=== PATIENT | female | born 1955 | race Asian ===

== ENCOUNTER 2018-08-16 03:27 | Emergency (ER) | payer OTHER ==
[2018-08-16] MEDS: IBUPROFEN 600 MG TAB PO (03:57)
== END 2018-08-16 04:13 | disposition home or self-care (01) ==
LOC: FTE 03:27
DX: S40.012A Contusion of left shoulder, initial encounter (principal); J45.909 Unspecified asthma, uncomplicated; I10 Essential (primary) hypertension; W01.0XXA Fall on same level from slipping, tripping and stumbling without subsequent striking against object, initial encounter; Y92.9 Unspecified place or not applicable
CPT/HCPCS: 99282